=== PATIENT | female | born 1975 | race Two or more races ===

== ENCOUNTER 2020-06-29 17:00 | Inpatient (IN) | payer MEDICAID ==
[~2020-06-29] VITALS: Ht 175.3 cm; Wt 146.0 kg
[2020-06-29] MEDS ORDERED: PANTOPRAZOLE 40 MG/10 ML VIAL INJ IV STA (17:03)
[2020-06-29] MEDS ORDERED: ONDANSETRON HCL 4 MG/2 ML VIAL IV ONE (17:15)
[2020-06-29] MEDS ORDERED: SODIUM CHLORIDE 0.9% 500 ML IVB ONE (17:15)
[2020-06-29] MEDS ORDERED: MORPHINE SULFATE 4 MG/ML SYR/VIAL IV ONE (17:15)
[2020-06-29 18:31] LABS: Basophils # (auto) 0 10 ^3/uL (0-0.2); Basophils % (auto) 0.3 % (0.0-2.0); Eosinophils # (auto) 0.1 10 ^3/uL (0-0.8); Eosinophils % (auto) 0.4 % (0.0-7.0); Hematocrit 42.1 % (36.0-46.0); Hemoglobin 13.8 g/dL (12.2-16.2); Lymphocytes # (auto) 1.7 10 ^3/uL (0.4-5.4); Lymphocytes % (auto) 12.9 % (10.0-50.0); Mean Corpuscular Hemoglobin 29.4 pg (28.0-32.0); Mean Corpuscular Hgb Conc. 32.7 g/dL (32.0-36.0); Mean Corpuscular Volume 89.9 fL (80.0-100.0); Monocytes # (auto) 0.8 10 ^3/uL (0-1.3); Monocytes % (auto) 6.6 % (0.0-12.0); Neutrophils # (auto) 10.3 10 ^3/uL (1.6-8.6); Neutrophils % (auto) 79.8 % (37.0-80.0); Nucleated Red Blood Cells % 0.1 %; Platelet Count (auto) 280 10^3/uL (140-450); Red Blood Cells 4.68 10^6/uL (4.0-5.20); Red Cell Distribution Width 14.4 % (11.8-14.3); White Blood Cell 12.9 10^3/uL (4.4-10.8)
[2020-06-29 18:43] LABS: Albumin 3.5 g/dL (3.4-5.0); Calcium 9.3 mg/dL (8.5-10.1); Potassium 3.6 mmol/L (3.5-5.1)
[2020-06-29 18:46] LABS: BUN/Creatinine Ratio 12.2; Bilirubin, Total 0.6 mg/dL (0.2-1.0); Total Protein 8.4 g/dL (6.4-8.2)
[2020-06-29] MEDS ORDERED: SODIUM CHLORIDE 0.9% 1,000 ML IV ONE (20:15)
[2020-06-29] MEDS ORDERED: ONDANSETRON HCL 4 MG/2 ML VIAL IV PRN (21:45)
[2020-06-29] MEDS ORDERED: NITROGLYCERIN 0.4 MG SL TAB SL PRN (21:45)
[2020-06-29] MEDS ORDERED: MORPHINE SULF INJ 2 MG/ML SYRINGE 1ML IV PRN (21:45)
[2020-06-29] MEDS: HEPARIN SODIUM (PORCINE) 5000 UNITS/ML 1ML VIAL SC SCH (22:00)
[2020-06-30] MEDS: ACETAMINOPHEN 325 MG TAB PO PRN ×2 (00:32→01:55)
[2020-06-30] MEDS: PIPERACILLIN-TAZOB 3.375GM 100 ML IV SCH ×4 (00:33→21:48)
[2020-06-30] MEDS: SODIUM CHLORIDE 0.9% 1,000 ML IV SCH ×4 (01:55→21:48)
[2020-06-30 03:34] LABS: Urine Amorphous Crystal FEW /hpf (None Seen); Urine Bacteria MOD /hpf (None Seen); Urine Blood 3+ /uL (Negative); Urine Hyaline Cast MANY /lpf (0 - 2); Urine Mucus FEW (None Seen); Urine Specific Gravity 1.019 (1.001-1.035); Urine WBC 39 /hpf (0 - 5)
[2020-06-30] MEDS: MORPHINE SULF INJ 2 MG/ML SYRINGE 1ML IV PRN ×3 (05:11→21:00)
[2020-06-30 05:22] LABS: Calcium 8.6 mg/dL (8.5-10.1); Magnesium 2.5 mg/dL (1.6-2.6); Potassium 4.4 mmol/L (3.5-5.1)
[2020-06-30 05:24] LABS: Basophils # (auto) 0.1 10 ^3/uL (0-0.2); Basophils % (auto) 0.5 % (0.0-2.0); Eosinophils # (auto) 0.2 10 ^3/uL (0-0.8); Eosinophils % (auto) 1.9 % (0.0-7.0); Hematocrit 40.1 % (36.0-46.0); Lymphocytes # (auto) 3.1 10 ^3/uL (0.4-5.4); Lymphocytes % (auto) 33.3 % (10.0-50.0); Mean Corpuscular Hemoglobin 29.5 pg (28.0-32.0); Mean Corpuscular Hgb Conc. 32.5 g/dL (32.0-36.0); Mean Corpuscular Volume 90.6 fL (80.0-100.0); Monocytes # (auto) 0.7 10 ^3/uL (0-1.3); Neutrophils # (auto) 5.2 10 ^3/uL (1.6-8.6); Neutrophils % (auto) 56.3 % (37.0-80.0); Nucleated Red Blood Cells % 0.1 %; Platelet Count (auto) 232 10^3/uL (140-450); Red Blood Cells 4.42 10^6/uL (4.0-5.20); Red Cell Distribution Width 14.9 % (11.8-14.3); White Blood Cell 9.3 10^3/uL (4.4-10.8)
[2020-06-30 05:25] LABS: BUN/Creatinine Ratio 18.3; Bilirubin, Total 0.7 mg/dL (0.2-1.0); Phosphorus 3.9 mg/dL (2.5-4.90); Total Protein 7.2 g/dL (6.4-8.2)
[2020-06-30] MEDS ORDERED: SODIUM CHLORIDE 0.9% 2,000 ML IV ONE (09:00)
[2020-06-30] MEDS: HEPARIN SODIUM (PORCINE) 5000 UNITS/ML 1ML VIAL SC SCH ×2 (11:46→21:49)
[2020-06-30] MEDS: PANTOPRAZOLE 40 MG TAB PO SCH ×2 (12:58→21:48)
[2020-06-30 17:00] VITALS: BP 138/80
[2020-06-30] MEDS ORDERED: LISI-706 PO (17:08)
[2020-06-30] MEDS ORDERED: METF-370 PO (17:08)
[2020-06-30] MEDS ORDERED: ERGO1CAP12 PO (17:08)
[2020-06-30] MEDS ORDERED: ATOR10TA52 PO (17:08)
[2020-06-30] MEDS ORDERED: GABA100C9 PO (17:08)
[2020-06-30 22:50] VITALS: BP 119/63
[2020-07-01] MEDS: MORPHINE SULF INJ 2 MG/ML SYRINGE 1ML IV PRN (03:10)
[2020-07-01 05:12] VITALS: BP 135/58
[2020-07-01] MEDS: PIPERACILLIN-TAZOB 3.375GM 100 ML IV SCH ×2 (05:37→14:00)
[2020-07-01] MEDS: SODIUM CHLORIDE 0.9% 1,000 ML IV SCH ×2 (05:37→13:45)
[2020-07-01 08:00] VITALS: BP 143/80
[2020-07-01] MEDS: HEPARIN SODIUM (PORCINE) 5000 UNITS/ML 1ML VIAL SC SCH (10:00)
[2020-07-01] MEDS: PANTOPRAZOLE 40 MG TAB PO SCH (10:05)
[2020-07-01] MEDS ORDERED: LEVO500T21 PO (12:35)
[2020-07-01] MEDS ORDERED: PANT40T PO (12:35)
[2020-07-01 12:59] VITALS: BP 158/84
[2020-07-01 13:26] VITALS: BP 131/73
== END 2020-07-01 18:11 | disposition home or self-care (01) | DRG 720 ==
LOC: EDBD 17:00 → ER 17:00 → OVERFLOW 17:01 → TELE-WESTW 06-30 15:05
PROVIDERS: ADMIT Internal Medicine; ATTEND Internal Medicine
DX: A41.9 Sepsis, unspecified organism (principal); R65.21 Severe sepsis with septic shock; N17.9 Acute kidney failure, unspecified; N39.0 Urinary tract infection, site not specified; I10 Essential (primary) hypertension; Z90.49 Acquired absence of other specified parts of digestive tract; Z88.5 Allergy status to narcotic agent; Z88.6 Allergy status to analgesic agent; Z79.899 Other long term (current) drug therapy
CPT/HCPCS: 36415; 74176; 80053; 81001; 83690; 83735; 84100; 84702; 85025; 87040; 87086; 96361; 96374; 96375; C9113; G0378; J2405; J2543

== ENCOUNTER 2025-03-15 19:39 | Inpatient (IN) | payer MEDICAID, SELFPAY ==
[~2025-03-15] VITALS: Ht 175.5 cm; Wt 152.7 kg
[~2025-03-15 19:39] MED LIST: ERGO1CAP12 PO; LEVO500T31 PO; LISI-706 PO; PANT40T PO
--- NOTE | 2025-03-15 19:58 | ECG ---
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
--- NOTE | 2025-03-15 20:00 | ED.PDOC ---
HPI (NEURO) HPI Comments 49-year-old female who comes in with chief complaint of dizziness as well as nausea and back pain. The patient states that the symptoms started approximately 1 hour ago. She was at work today and states that she felt fine. Upon arrival, the patient states that she was at home and then 1 hour prior to arrival as when the symptoms began. The patient also had some palpitations. She does have a history of anxiety but states that the pain and the symptoms were somewhat different. The patient is having some epigastric pain as well as headache. The patient was tachycardic upon arrival and initially she was hypertensive but upon arrival, the patient is now normotensive. Chief Complaint: General Weakness Time Seen by MD: 19:41 Primary Care Provider: JELLY Reviewed Notes: Nurses Notes, Computer Assembler Notes, Medications, Allergies (Allergies listed above) Information Source: Patient, Emergency Med Personnel Mode of Arrival: EMS Severity: Moderate Dizziness/Weakness Severity: Does not affect activitie Headache Severity: Mild Timing: Hours Duration: Since onset Prehospital treatment: 12 Lead EKG, Accucheck, Rehabilitation Aide, IVF Headache Location: Generalized Weakness Location: Generalized Onset: At rest, Other (Sudden onset) Circumstances: Spontaneous Symptoms: Near syncope, Other (Palpitations, epigastric pain and headache) Before: Normal Associated Signs and Symptoms: Headache, Nausea, Palpitations, Weakness, Other (Dizziness and back pain) Past Medical History PAST MEDICAL HISTORY: Anxiety, Cancer (Uterine cancer stage II), HTN Surgical History: Cholecystectomy PROPERTY WORKER History: No Pertinent PROPERTY WORKER History Family History Family History: Family hx of DM, Family hx of Cancer, Family hx of heart dago Social History Smoker: Non-Smoker Alcohol: Rarely Drugs: Denies Drug Use Lives In: Home Constitutional: denies: chills, diaphoresis, fatigue, fever, malaise, sweats, weakness, others EENTM: denies: blurred vision, double vision, ear bleeding, ear discharge, ear drainage, ear pain, ear ringing, eye pain, eye redness, hearing loss, mouth pain, mouth swelling, nasal discharge, nose bleeding, nose congestion, nose pain, photophobia, tearing, throat pain, throat swelling, voice changes, others Respiratory: denies: cough, hemoptysis, orthopnea, SOB at rest, shortness of breath, SOB with excertion, stridor, wheezing, others Cardiovascular: reports: palpitations; denies: chest pain, dizzy spells, diaphoresis, Dyspnea on exertion, edema, irregular heart beat, left arm pain, lightheadedness, PND, syncope, others Gastrointestinal: reports: abdominal pain, nausea; denies: abdomen distended, blood streaked bowels, constipated, diarrhea, dysphagia, difficulty swallowing, hematemesis, melena, poor appetite, poor fluid intake, rectal bleeding, rectal pain, vomiting, others Genitourinary: denies: abnormal vagina bleeding, burning, dyspareunia, dysuria, flank pain, frequency, hematuria, incontinence, pain, , vagina discharge, urgency, others Neurological: reports: dizziness, headache; denies: fainting, left sided numbness, left sided weakness, numbness, paresthesia, pre-existing deficit, right sided numbness, right sided weakness, seizure, speech problems, tingling, tremors, weakness, others Musculoskeletal: denies: back pain, gout, joint pain, joint swelling, muscle pain, muscle stiffness, neck pain, others Integumetry: denies: bruises, change in color, change in hair/nails, dryness, laceration, lesions, lumps, rash, wounds, others Allergic/Immunocompromised: denies: Difficulty Healing, Frequent Infections, Hives, Itching, others Hematologic/Lymphatic: denies: anemia, blood clots, easy bleeding, easy bruising, swollen glands, others Endocrine: denies: excessive hunger, excessive sweating, excessive thirst, excessive urination, flushing, intolerance to cold, intolerance to heat, unexplained weight gain, unexplained weight loss, others Psychiatric: denies: anxiety, bipolar disorder, depression, hopeless, panic disorder, schizophrenia, sleepless, suicidal, others Physical Exam General Appearance: Moderate Distress, Obese HEENT: Normal ENT Inspection, Pharynx Normal, TMs Normal Neck: Full Range of Motion, Non-Tender, Normal, Normal Inspection Respiratory: Chest Non-Tender, Lungs Clear, No Accessory Muscle Use, No Respiratory Distress, Normal Breath Sounds Cardiovascular: No Edema, No JVD, No Murmur, No Gallop, Normal Peripheral Pulses, Regular Rate/Rhythm Breast Exam: Deferred Gastrointestinal: Epigastric, No Organomegaly, No Pulsatile Mass, Normal Bowel Sounds, Soft, Tenderness Genitalia: Deferred Pelvic: Deferred Rectal: Deferred Extremities: No calf tenderness, Normal capillary refill, Normal inspection, Normal range of motion, Non-tender, No pedal edema Musculoskeletal : Apperance: Normal Neurologic: 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 Was a procedure done?: No Differential Diagnosis (SZ) Seizure: CVA/TIA, Syncope CVA: CVA, TIA X-Ray, Labs, Meds, VS Vital Signs Date Time Temp Pulse Resp B/P (MAP) Pulse Ox O2 Delivery O2 Flow Rate FiO2 03/15/25 20:00 55 03/15/25 19:52 55 03/15/25 19:52 98.0 57 16 137/77 (97) 98 98.0 Lab Test 03/15/25 20:52 03/15/25 20:00 03/15/25 19:56 Range/Units Troponin I High Sensitivity Pending < 3 L </=34 ng/L Urine Color Light-yellow Yellow Urine Clarity Turbid H Clear Urine pH 6.0 5.0-9.0 Urine Specific [place] 1.015 1.001-1.035 Urine Protein Negative Negative Urine Ketones Trace Negative Urine Blood 3+ H Negative /uL Urine Nitrite Negative Negative Urine Bilirubin Negative Negative Urine Urobilinogen Normal Negative mg/dL Urine Leukocyte Esterase 3+ Negative /uL Urine RBC 5 0 - 4 /hpf Urine Microscopic WBC 136 H 0-5 /HPF Urine Squamous Epithelial Cells Few <5 /hpf Urine Bacteria Few H None Seen /hpf Urine Mucus Few None Seen Urine Glucose Normal Normal mg/dL White Blood Count 8.9 4.4-10.8 10^3/uL Red Blood Count 4.67 4.0-5.20 10^6/uL Hemoglobin 14.0 12.2-16.2 g/dL Hematocrit 41.1 36.0-46.0 % Mean Corpuscular Volume 87.9 80.0-100.0 fL Mean Corpuscular Hemoglobin 29.9 28.0-32.0 pg Mean Corpuscular Hemoglobin Concent 34.0 32.0-36.0 g/dL Red Cell Distribution Width 14.3 11.8-14.3 % Platelet Count 245 140-450 10^3/uL Mean Platelet Volume 7.2 6.9-10.8 fL Neutrophils (%) (Auto) 50.1 37.0-80.0 % Lymphocytes (%) (Auto) 38.8 10.0-50.0 % Monocytes (%) (Auto) 7.4 0.0-12.0 % Eosinophils (%) (Auto) 2.7 0.0-7.0 % Basophils (%) (Auto) 1.0 0.0-2.0 % Neutrophils # (Auto) 4.5 1.6-8.6 10 ^3/uL Lymphocytes # (Auto) 3.4 0.4-5.4 10 ^3/uL Monocytes # (Auto) 0.7 0-1.3 10 ^3/uL Eosinophils # (Auto) 0.2 0-0.8 10 ^3/uL Basophils # (Auto) 0.1 0-0.2 10 ^3/uL Nucleated Red Blood Cells 0.2 % Sodium Level 141 136-145 mmol/L Potassium Level 3.6 3.5-5.1 mmol/L Chloride Level 107 98-107 mmol/L Carbon Dioxide Level 26 20-31 mmol/L Anion Gap 8 5-15 Blood Urea Nitrogen 12 9-23 mg/dL Creatinine 0.85 0.550-1.02 mg/dL Glomerular Filtration Rate Calc 84 >90 mL/min BUN/Creatinine Ratio 14.1 10.0-20.0 Serum Glucose 94 74-106 mg/dL Calcium Level 10.0 8.7-10.4 mg/dL IV Hep-Lock was established The CBC is within normal limits The chemistry panel is within normal limits The urine test is positive for UTI The patient is still having epigastric type pain The patient is being started on Rocephin 1 g IV piggyback The patient is being admitted at this time Images Reviewed?: Images reviewed and evaluated by me Time of 1ST Reevaluation: 19:59 Reevaluation 1ST: Unchanged Patient Education/Counseling: Diagnosis, Treatment, Prognosis Family Education/Counseling: No Family Present Departure 1 Departure Time of Disposition: 21:09 Impression: Primary Impression: Intractable abdominal pain Additional Impressions: UTI (lower urinary tract infection) Generalized weakness Disposition: 09 ADMITTED INPATIENT Admit to: Med Surg Condition: Fair Critical Care Note Critical Care Time?: Yes (45 min-critical care time only) Stability Stability form required: Yes Unstable for transfer: Telemetry monitoring (Telemetry monitoring required), ED Physician Assesment (Clinical assesment) Heart Score Heart Score: Heart Score Response (Comments) Value History Moderate Suspicious 1 EKG Repolarization Disturb 1 Age 45-64 1 Risk Factors 1 or 2 risk factors 1 Troponin Normal limit 0 Total 4 DAISY PROCTOR MD Mar 15, 2025 20:00
[2025-03-15 20:07] LABS: Basophils # (auto) 0.1 10 ^3/uL (0-0.2); Eosinophils # (auto) 0.2 10 ^3/uL (0-0.8); Eosinophils % (auto) 2.7 % (0.0-7.0); Hematocrit 41.1 % (36.0-46.0); Lymphocytes # (auto) 3.4 10 ^3/uL (0.4-5.4); Lymphocytes % (auto) 38.8 % (10.0-50.0); Mean Corpuscular Hemoglobin 29.9 pg (28.0-32.0); Mean Corpuscular Volume 87.9 fL (80.0-100.0); Monocytes # (auto) 0.7 10 ^3/uL (0-1.3); Monocytes % (auto) 7.4 % (0.0-12.0); Neutrophils # (auto) 4.5 10 ^3/uL (1.6-8.6); Neutrophils % (auto) 50.1 % (37.0-80.0); Nucleated Red Blood Cells % 0.2 %; Platelet Count (auto) 245 10^3/uL (140-450); Red Blood Cells 4.67 10^6/uL (4.0-5.20); Red Cell Distribution Width 14.3 % (11.8-14.3); White Blood Cell 8.9 10^3/uL (4.4-10.8)
[2025-03-15 20:16] LABS: Urine Bacteria FEW /hpf (None Seen); Urine Blood 3+ /uL (Negative); Urine Clarity Turbid (Clear); Urine Color Light-Yellow (Yellow); Urine Mucus FEW (None Seen); Urine Protein, UAD Negative (Negative); Urine Specific Gravity 1.015 (1.001-1.035); Urine Squamous Epithelial Cell FEW /hpf (<5); Urine Urobilinogen Normal (Negative); Urine WBC 136 /HPF (0-5)
[2025-03-15 20:19] LABS: Chloride 107 mmol/L (98-107); Potassium 3.6 mmol/L (3.5-5.1); Sodium 141 mmol/L (136-145)
[2025-03-15 20:20] LABS: Anion Gap 8 (5-15); Carbon Dioxide 26 mmol/L (20-31)
[2025-03-15 20:25] LABS: BUN/Creatinine Ratio 14.1 (10.0-20.0); Blood Urea Nitrogen 12 mg/dL (9-23); Glucose 94 mg/dL (74-106)
--- NOTE | 2025-03-15 21:02 | ECG ---
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
--- NOTE | 2025-03-15 22:31 | DVH ---
EXAM: XY CHEST PORTABLE CLINICAL HISTORY: weakness TECHNIQUE: Single frontal view of the chest WID: COMPARISON: None FINDINGS: Lines and tubes: NONE Chest: The heart size and pulmonary vasculature is within normal limits. No pleural effusion, pneumothorax, or consolidation. The osseous structures are grossly intact. Multilevel thoracic spondylosis. IMPRESSION: No acute cardiopulmonary abnormality.
[2025-03-16] VITALS (7 sets, daily range): BP systolic 105–127; BP diastolic 41–61; PULSE 51–60; RESP 14–18; TEMP 97.6–98.6; O2SAT 96–98
[2025-03-16] MEDS ORDERED: ONDANSETRON HCL 4 MG/2 ML VIAL IV PRN (01:15)
[2025-03-16] MEDS ORDERED: NITROGLYCERIN 0.4 MG SL TAB SL PRN (01:15)
[2025-03-16] MEDS ORDERED: MORPHINE SULFATE INJ 2 MG/ml SYRG IV PRN (01:15)
[2025-03-16] MEDS ORDERED: HYDROcodone-ACET 5/325MG TAB PO PRN (01:15)
[2025-03-16] MEDS: ONDANSETRON HCL 4 MG/2 ML VIAL IV ONE (03:22)
[2025-03-16] MEDS: PANTOPRAZOLE 40 MG/10 ML VIAL INJ IV ONE (03:22)
[2025-03-16] MEDS: SODIUM CHLORIDE 0.9% 500 ML IV ONE (04:01)
--- NOTE | 2025-03-16 04:08 | DVHHP2 ---
History of Present Illness Reason for Visit: Generalized weakness History of Present Illness 49-year-old female presents for evaluation of generalized weakness. Patient reports developing generalized weakness with associated dizziness yesterday. Patient also reports having back pain. Patient reports recently being diagnosed with uterine cancer and is currently undergoing workup for treatment. Denies chest pain. No shortness a breath. No other acute complaints. Past Medical History Uterine cancer, hypertension, anxiety Past Surgical History Cholecystectomy Family History Cancer and heart disease Smoke: No ALCOHOL: occassional Drugs: None Lives: with Family Review of Systems Review of Systems Review of systems are currently negative otherwise addressed in HPI. Allergies: Coded Allergies: Codeine (Verified Allergy, Unknown, 02/01/15) Ibuprofen (Verified Allergy, Unknown, 02/01/15) Medications Current Medications Medications Dose Ordered Sig/Malik Route Start Time Stop Time Status Last Admin Dose Admin Lisinopril 10 mg DAILY PO 03/16/25 10:00 Levothyroxine Sodium 25 mcg QAM@0600 PO 03/16/25 06:00 Atorvastatin Calcium 20 mg HS PO 03/16/25 22:00 Acetaminophen/ Hydrocodone Bitart 1 tab Q4HP PRN PO 03/16/25 01:15 Ondansetron HCl 4 mg Q4HP PRN IV 03/16/25 01:15 Acetaminophen 650 mg Q6HP PRN PO 03/16/25 01:15 Nitroglycerin 0.4 mg Q5MINP PRN SL 03/16/25 01:15 Morphine Sulfate 2 mg Q30M PRN IV 03/16/25 01:15 Ceftriaxone Sodium 50 ml @ 100 mls/hr DAILY@09 IV 03/17/25 09:00 Exam Vital Signs Vital Signs Date Time Temp Pulse Resp B/P (MAP) Pulse Ox O2 Delivery O2 Flow Rate FiO2 03/16/25 03:26 16 Room Air* 0 21 21 03/16/25 02:42 99.1 54 145/45 (78) 96 99.1 Exam Gen: 49-year-old female in mild distress, morbidly obese Skin: Warm, dry, normal color and texture, no rash. HEENT: Normocephalic atraumatic, mucous membranes moist and pink. Neck: Cervical and supraclavicular nodes normal without enlargement, trachea is midline, thyroid gland is normal without masses. Pulmonary: Clear to auscultation and percussion bilaterally. Cardiac: Sinus bradycardia Abdomen: Soft, nontender, nondistended, bowel sounds present all 4 quadrants, no guarding, no rigidity, no organomegaly. Extremities: No cyanosis, clubbing, no edema Neuro: Cranial nerves II through XII grossly intact, normal affect and speech, no focal motor deficits. Labs/Xrays ORDERING PHYSICIAN: DAISY PROCTOR MD PROCEDURE(s): CXRP - CHEST PORTABLE REASON: weakness ORDER NUMBER(s): [id number], ACCESSION NUMBER(s): [id number] EXAM: XY CHEST PORTABLE CLINICAL HISTORY: weakness TECHNIQUE: Single frontal view of the chest WID: COMPARISON: None FINDINGS: Lines and tubes: NONE Chest: The heart size and pulmonary vasculature is within normal limits. No pleural effusion, pneumothorax, or consolidation. The osseous structures are grossly intact. Multilevel thoracic spondylosis. IMPRESSION: No acute cardiopulmonary abnormality. Labs Test 03/15/25 20:52 03/15/25 20:00 03/15/25 19:56 Range/Units Troponin I High Sensitivity < 3 L </=34 ng/L Urine Color Light-yellow Yellow Urine Clarity Turbid H Clear Urine pH 6.0 5.0-9.0 Urine Specific [place] 1.015 1.001-1.035 Urine Protein Negative Negative Urine Ketones Trace Negative Urine Blood 3+ H Negative /uL Urine Nitrite Negative Negative Urine Bilirubin Negative Negative Urine Urobilinogen Normal Negative mg/dL Urine Leukocyte Esterase 3+ Negative /uL Urine RBC 5 0 - 4 /hpf Urine Microscopic WBC 136 H 0-5 /HPF Urine Squamous Epithelial Cells Few <5 /hpf Urine Bacteria Few H None Seen /hpf Urine Mucus Few None Seen Urine Glucose Normal Normal mg/dL White Blood Count 8.9 4.4-10.8 10^3/uL Red Blood Count 4.67 4.0-5.20 10^6/uL Hemoglobin 14.0 12.2-16.2 g/dL Hematocrit 41.1 36.0-46.0 % Mean Corpuscular Volume 87.9 80.0-100.0 fL Mean Corpuscular Hemoglobin 29.9 28.0-32.0 pg Mean Corpuscular Hemoglobin Concent 34.0 32.0-36.0 g/dL Red Cell Distribution Width 14.3 11.8-14.3 % Platelet Count 245 140-450 10^3/uL Mean Platelet Volume 7.2 6.9-10.8 fL Neutrophils (%) (Auto) 50.1 37.0-80.0 % Lymphocytes (%) (Auto) 38.8 10.0-50.0 % Monocytes (%) (Auto) 7.4 0.0-12.0 % Eosinophils (%) (Auto) 2.7 0.0-7.0 % Basophils (%) (Auto) 1.0 0.0-2.0 % Neutrophils # (Auto) 4.5 1.6-8.6 10 ^3/uL Lymphocytes # (Auto) 3.4 0.4-5.4 10 ^3/uL Monocytes # (Auto) 0.7 0-1.3 10 ^3/uL Eosinophils # (Auto) 0.2 0-0.8 10 ^3/uL Basophils # (Auto) 0.1 0-0.2 10 ^3/uL Nucleated Red Blood Cells 0.2 % Sodium Level 141 136-145 mmol/L Potassium Level 3.6 3.5-5.1 mmol/L Chloride Level 107 98-107 mmol/L Carbon Dioxide Level 26 20-31 mmol/L Anion Gap 8 5-15 Blood Urea Nitrogen 12 9-23 mg/dL Creatinine 0.85 0.550-1.02 mg/dL Glomerular Filtration Rate Calc 84 >90 mL/min BUN/Creatinine Ratio 14.1 10.0-20.0 Serum Glucose 94 74-106 mg/dL Calcium Level 10.0 8.7-10.4 mg/dL Assessment/Plan Assessment/Plan Assessment Symptomatic bradycardia Generalized weakness Urinary tract infection Uterine cancer Morbid obesity Plan Admit the patient to telemetry to the hospitalist Cardiology consultation Echocardiogram pending Resume home medications Continue treatment per orders. Plan discussed with: Patient My Orders Orders - EMILY KING Procedure Category Date Status Time Lisinopril Tablet PHA 03/16/25 In Process (Zestril Tablet) 10:00 Levothyroxine Tablet PHA 03/16/25 In Process (Synthroid Tablet) 06:00 Atorvastatin (Lipitor) PHA 03/16/25 In Process 22:00 * Cardiology Consult CONS 03/16/25 Transmitted 01:06 Admit ADMIT 03/16/25 Transmitted 01:06 Hydrocodone-Acet PHA 03/16/25 In Process 5/325mg Tab (Portal 01:15 Ondansetron Hcl PHA 03/16/25 In Process (Zofran) 01:15 Cardiac DIET 03/16/25 Transmitted Diet-2gna,Lofat,Lochol Breakfast Echo 2d Mode Cardiac US 03/16/25 Logged DOP 01:06 Condition: Fair ELIZABETH 03/16/25 In Process 01:06 Acetaminophen Tablet PHA 03/16/25 In Process (Tylenol Tablet) 01:15 Bedrest With Bathroom [facility] 03/16/25 In Process Privileg 01:06 Nitroglycerin PHA 03/16/25 In Process Sublingual (Ntrostat 01:15 Morphine Sulfate PHA 03/16/25 In Process Injection 01:15 Stat Ekg For Chest [facility] 03/16/25 In Process Pain 01:06 Notify Md Of Changes [facility] 03/16/25 In Process From Base 01:06 Bilingual Recruiter For [facility] 03/16/25 In Process 24 Hours 01:06 Emergency Dysrhythmia [facility] 03/16/25 In Process Protocol 01:06 Rhythm Strips Once [facility] 03/16/25 In Process Every Shift 01:06 Oxygen By Nasal RT 03/16/25 Transmitted Cannula 01:06 Basic Metabolic Panel LAB 03/16/25 Logged 04:00 Ceftriaxone 1gm/50ml PHA 03/17/25 In Process D5w (Rocephin) 09:00 Date of Service: Mar 15, 2025 Billing Provider: EMILY KING Common Visit Codes: [id number] INP/OBS CARE (HIGH) EMILY KING Mar 16, 2025 04:07
[2025-03-16] MEDS: cefTRIAXone 1GM/50ML D5W 50 ML IV ONE (04:11)
[2025-03-16] MEDS ORDERED: CETI-120 PO (04:37)
[2025-03-16] MEDS ORDERED: LEVO25TA6 PO (04:37)
[2025-03-16] MEDS: LEVOTHYROXINE SODIUM 25 MCG TAB PO SCH (04:58)
--- NOTE | 2025-03-16 06:56 | ECG ---
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
[2025-03-16 08:13] LABS: Chloride 107 mmol/L (98-107)
[2025-03-16 08:15] LABS: Calcium 9.7 mg/dL (8.7-10.4)
[2025-03-16 08:19] LABS: BUN/Creatinine Ratio 12.2 (10.0-20.0); Blood Urea Nitrogen 11 mg/dL (9-23); Glucose 100 mg/dL (74-106)
[2025-03-16 08:21] LABS: Cholesterol 168 mg/dL (< 200); LDL Cholesterol 112 mg/dL (< 100); Triglycerides 240 mg/dL (< 150)
[2025-03-16 08:23] LABS: HDL Cholesterol 29 mg/dL (40-59)
[2025-03-16 08:40] LABS: Potassium 3.9 mmol/L (3.5-5.1); Sodium 140 mmol/L (136-145)
[2025-03-16 08:41] LABS: Anion Gap 10 (5-15); Carbon Dioxide 23 mmol/L (20-31)
[2025-03-16] MEDS: LISINOPRIL 5 MG TAB PO SCH (08:50)
--- NOTE | 2025-03-16 09:27 | DVHCONRES ---
Date Seen: Mar 16, 2025 Resident Creating Document: JOSE FRANCISCO COKER RESIDENT Reason for Consultation Bradycardia History of Present Illness Patient is a 49-year-old female with past medical history of hypothyroidism, recently diagnosed uterine cancer currently not on treatment, dyslipidemia, who comes in due to weakness and dizziness. According to the patient, yesterday on 03/15/2025 all of a sudden she started feeling faint, fatigued and weak along with a heavy sensation in her chest, patient notes she tried breathing treatments which slightly improved her symptoms, however, what caused her to vomit which is what prompted her to call the ambulance and come to the hospital. Patient notes she had similar symptoms a few months ago and usually experiences such symptoms during times of extreme stress, however this time symptoms were more persistent and progressive. On review of systems patient is complaining of fatigue, chills, palpitations and vomiting. Serial troponins were <3, <3. EKG showed sinus bradycardia without any pauses or blocks along with a bifascicular block. Past Medical History hypothyroidism, recently diagnosed uterine cancer currently not on treatment, dyslipidemia Past Surgical History Cholecystectomy, right arm surgery Family History: Diabetes mellitus G8 FATHER FH: cancer G8 MOTHER FH: heart disease G8 MOTHER Social History Smoking: Denies Alcohol: Currently denies, history of heavy use in her 30s Drugs: Denies Allergies: Coded Allergies: Codeine (Verified Allergy, Unknown, 02/01/15) Ibuprofen (Verified Allergy, Unknown, 02/01/15) Milk (Cow) (Verified Allergy, Unknown, 03/17/25) Per pt Home Meds Active Scripts Ciprofloxacin Hcl (Cipro) 500 Mg Tab, 500 MG PO BID for 5 Days, #10 TAB Prov:JOSE GUIDRY RESIDENT 03/17/25 Levothyroxine Sodium (Levothyroxine Sodium) 50 Mcg Tab, 50 MCG PO DAILY for 30 Days, #30 TAB 2 Refills Prov:JOSE GUIDRY RESIDENT 03/17/25 Meclizine Hcl (Meclizine Hcl) 25 Mg Tab, 25 MG PO Q8HR PRN for 10 Days, #30 TAB Prov:JOSE GUIDRY RESIDENT 03/17/25 Levofloxacin (Levaquin) 500 Mg Tab, 500 MG PO DAILY, #12 TAB Prov:RYLEE RAMIREZ MD 07/01/20 Pantoprazole Sodium Sesquihydr (Pantoprazole Sodium) 40 Mg Tab, 40 MG PO DAILY, #30 TAB Prov:RYLEE RAMIREZ MD 07/01/20 Reported Medications Cetirizine HCl (Cetirizine Hydrochloride) 10 Mg Tab, 1 TAB PO DAILY 03/16/25 Levothyroxine Sodium (Levothyroxine Sodium) 25 Mcg Tab, PO 03/16/25 Ergocalciferol (Vitamin D) 50,000 Unit Cap, 41573 UNIT PO, CAP 06/30/20 Lisinopril & Hydrochlorothiazi (Zestoretic 20-12.5 mg) 1 Tab Tab, 1 TAB PO DAILY, TAB 06/30/20 Current Medications Current Medications Medications (Trade) Dose Ordered Sig/Malik Route PRN Reason Start Time Stop Time Status Last Admin Lisinopril (Zestril Tablet) 10 mg DAILY PO 03/16/25 10:00 03/16/25 08:50 Levothyroxine Sodium (Synthroid Tablet) 25 mcg QAM@0600 PO 03/16/25 06:00 03/16/25 04:58 Atorvastatin Calcium (Lipitor) 20 mg HS PO 03/16/25 22:00 Acetaminophen/ Hydrocodone Bitart ([place] 5/325MG Tab) 1 tab Q4HP PRN PO MODERATE PAIN (4-6 PAIN SCALE) 03/16/25 01:15 Ondansetron HCl (Zofran) 4 mg Q4HP PRN IV NAUSEA / VOMITING 03/16/25 01:15 Acetaminophen (Tylenol Tablet) 650 mg Q6HP PRN PO PAIN SCALE 1-3 OR TEMP>100.4 03/16/25 01:15 Nitroglycerin (Ntrostat Sublingual) 0.4 mg Q5MINP PRN SL FOR CHEST PAIN 03/16/25 01:15 Morphine Sulfate 2 mg Q30M PRN IV FOR CHEST PAIN 03/16/25 01:15 Ceftriaxone Sodium 50 ml @ 100 mls/hr DAILY@09 IV 03/17/25 09:00 Review of Systems Patient seen and examined at bedside. Patient is alert and oriented to time, place person and responding to all questions. General: Fatigue, chills Eyes: No Pain, No Vision change, No Conjunctivae inflammation, No Eyelid inflammation, No Other, No Redness ENT: No Ear pain, No Ear discharge, No Nose pain, No Nose discharge, No Nose congestion, No Mouth pain, No Mouth swelling, No Throat pain, No Throat swelling, No Other Cardiovascular: No Chest Pain, Palpitations, No Orthopnea, No Paroxysmal No Dyspnea, No Edema, No Lt Headedness, No Other Respiratory: No Cough, No Dry, No Shortness of breath, No SOB with exertion, No Wheezing, No Hemoptysis, No Pleuritic Pain, No Sputum, No Other Gastrointestinal: No Nausea, Vomiting, No Abdominal Pain, No Diarrhea, No Co nstipation, No Melena, No Hematochezia, No Other Genitourinary: No Dysuria, No Frequency, No Incontinence, No Hematuria, No Ret ention, No Other Musculoskeletal: No other, No neck pain, No shoulder pain, No arm pain, No back pain, No hand pain, No leg pain, No foot pain Skin: No Rash, No Lesions, No Jaundice, No Bruising, No Other Vital Signs Vital Signs Date Time Temp Pulse Resp B/P (MAP) Pulse Ox O2 Delivery O2 Flow Rate FiO2 03/16/25 08:50 119/59 03/16/25 07:57 98.2 55 18 98 98.2 03/16/25 04:19 Room Air* 0 21 Physical Exam General Appearance: Cooperative. Well developed. Well nourished. NAD, dry mucous membrane Head Exam: Normal inspection Neck Exam: Normal inspection. Non-tender. Normal alignment Pulmonary/Respiratory: Chest non-tender. Clear bilateral breath sounds, no crackles, no wheezing. Cardiovascular/Chest: Regular rhythm, bradycardia. No murmurs. No JVD. Peripheral Pulses: 2+ Radial (R). 2+ Radial (L). 2+ Pedal (R). 2+ Pedal (L) Abdominal Exam: Normal bowel sounds. Soft. normal abdomen, no visible veins, Nontender. No hepatospenomegaly. No masses Lower extremities: Trace lower extremity edema Neuro/Mental Status: A&O x4. Coherent. Thoughts/Psych: Normal thought pattern. Appropriate mood and affect. Good judgement and insight Skin Exam: Normal inspection. Normal color. Warm. Dry Labs/Diagnostic Data Labs Test 03/16/25 07:07 03/15/25 20:52 03/15/25 20:00 03/15/25 19:56 Range/Units Sodium Level 140 136-145 mmol/L Potassium Level 3.9 3.5-5.1 mmol/L Chloride Level 107 98-107 mmol/L Carbon Dioxide Level 23 20-31 mmol/L Anion Gap 10 5-15 Blood Urea Nitrogen 11 9-23 mg/dL Creatinine 0.90 0.550-1.02 mg/dL Glomerular Filtration Rate Calc 78 >90 mL/min BUN/Creatinine Ratio 12.2 10.0-20.0 Serum Glucose 100 74-106 mg/dL Calcium Level 9.7 8.7-10.4 mg/dL Triglycerides Level 240 H < 150 mg/dL Cholesterol Level 168 < 200 mg/dL LDL Cholesterol 112 H < 100 mg/dL HDL Cholesterol 29 L 40-59 mg/dL Thyroid Stimulating Hormone (TSH) 6.10 H 0.55-4.78 uIU/mL Troponin I High Sensitivity < 3 L </=34 ng/L Urine Color Light-yellow Yellow Urine Clarity Turbid H Clear Urine pH 6.0 5.0-9.0 Urine Specific [place] 1.015 1.001-1.035 Urine Protein Negative Negative Urine Ketones Trace Negative Urine Blood 3+ H Negative /uL Urine Nitrite Negative Negative Urine Bilirubin Negative Negative Urine Urobilinogen Normal Negative mg/dL Urine Leukocyte Esterase 3+ Negative /uL Urine RBC 5 0 - 4 /hpf Urine Microscopic WBC 136 H 0-5 /HPF Urine Squamous Epithelial Cells Few <5 /hpf Urine Bacteria Few H None Seen /hpf Urine Mucus Few None Seen Urine Glucose Normal Normal mg/dL White Blood Count 8.9 4.4-10.8 10^3/uL Red Blood Count 4.67 4.0-5.20 10^6/uL Hemoglobin 14.0 12.2-16.2 g/dL Hematocrit 41.1 36.0-46.0 % Mean Corpuscular Volume 87.9 80.0-100.0 fL Mean Corpuscular Hemoglobin 29.9 28.0-32.0 pg Mean Corpuscular Hemoglobin Concent 34.0 32.0-36.0 g/dL Red Cell Distribution Width 14.3 11.8-14.3 % Platelet Count 245 140-450 10^3/uL Mean Platelet Volume 7.2 6.9-10.8 fL Neutrophils (%) (Auto) 50.1 37.0-80.0 % Lymphocytes (%) (Auto) 38.8 10.0-50.0 % Monocytes (%) (Auto) 7.4 0.0-12.0 % Eosinophils (%) (Auto) 2.7 0.0-7.0 % Basophils (%) (Auto) 1.0 0.0-2.0 % Neutrophils # (Auto) 4.5 1.6-8.6 10 ^3/uL Lymphocytes # (Auto) 3.4 0.4-5.4 10 ^3/uL Monocytes # (Auto) 0.7 0-1.3 10 ^3/uL Eosinophils # (Auto) 0.2 0-0.8 10 ^3/uL Basophils # (Auto) 0.1 0-0.2 10 ^3/uL Nucleated Red Blood Cells 0.2 % Assessment Sinus bradycardia likely secondary to severe hypothyroidism Generalized weakness Acute complicated UTI Presyncope Dyslipidemia Plan: Continue levothyroxine Continue antibiotics Monitor blood pressure IV hydration Rest of the plan as per course of hospitalization Thank you so much for the opportunity to consult on your patient. Cardiology team will follow the patient. In case of any questions or concerns please feel free to reach out. Plan discussed with Dr. Fletcher Plan discussed with: Patient, Other (RN) Visit Coding Cardiology RES Date of Service: Mar 16, 2025 Billing Provider: VANE FLETCHER Sr., MD Cardiology Common Codes: [id number] INP/OBS CARE (High) JOSE FRANCISCO COKER RESIDENT Mar 16, 2025 09:27
--- NOTE | 2025-03-16 10:35 | DVHPNRES ---
Progress Note Date Seen: Mar 16, 2025 Resident Creating Document: JOSE GUIDRY RESIDENT Medical Necessity Reason Pt with a Central, PICC or Fol: No Subjective Review of Systems 49 YO F with recently diagnosed uterine cancer, presents with a sudden onset of faintness, dizziness, and severe fatigue that began yesterday after work. This is the first occurrence of these symptoms. The patient reports feeling fine initially, then experiencing a sudden onset of symptoms including Near syncope, dizziness, and extreme tiredness. Additionally, she felt chest tightness and difficulty breathing. The episode began yesterday after work, and the patient Called ambulance due to shaking and feeling unwell. She distinguishes this experience from her usual anxiety attacks, which occur during times of stress, stating that "this was different." The patient describes feeling chest pressure yesterday, though she currently denies chest pain. Regarding her medical history, the patient was diagnosed with uterine cancer a month ago and is following up in [place] for surgical management. Past Medical History - Uterine cancer diagnosed one month ago - History of anxiety attacks associated with stress - Hypercholesterolemia - Hypertension General: Positive for fatigue. Cardiovascular: Positive for chest tightness, negative for current chest pain. Respiratory: Positive for difficulty breathing. Neurological: Positive for dizziness. Psychiatric: Positive for anxiety. Objective vital signs Vital Sign Date Time Temp Pulse Resp B/P (MAP) Pulse Ox O2 Delivery O2 Flow Rate FiO2 03/16/25 08:50 119/59 03/16/25 07:57 98.2 55 18 98 98.2 03/16/25 04:19 Room Air* 0 21 Total Intake and Output 03/15/25 03/15/25 03/16/25 15:00 23:00 07:00 Intake Total 100 ml Balance 100 ml medications Current Medications Medications Dose Ordered Sig/Malik Route Start Time Stop Time Status Last Admin Dose Admin Lisinopril 10 mg DAILY PO 03/16/25 10:00 03/16/25 08:50 10 MG Levothyroxine Sodium 25 mcg QAM@0600 PO 03/16/25 06:00 03/16/25 04:58 25 MCG Atorvastatin Calcium 20 mg HS PO 03/16/25 22:00 Acetaminophen/ Hydrocodone Bitart 1 tab Q4HP PRN PO 03/16/25 01:15 Ondansetron HCl 4 mg Q4HP PRN IV 03/16/25 01:15 Acetaminophen 650 mg Q6HP PRN PO 03/16/25 01:15 Nitroglycerin 0.4 mg Q5MINP PRN SL 03/16/25 01:15 Morphine Sulfate 2 mg Q30M PRN IV 03/16/25 01:15 Ceftriaxone Sodium 50 ml @ 100 mls/hr DAILY@09 IV 03/17/25 09:00 Examination GENERAL: Not in acute distress. HEENT: EOMI, Moist mucous membranes. No scleral icterus. No cervical lymphadenopathy. LUNGS: Clear to auscultation bilaterally. No accessory muscle use. CARDIOVASCULAR: Regular rate and rhythm. No murmur. No JVD. ABDOMEN: Soft, nontender and nondistended. No palpable masses. EXTREMITIES: No edema. Nontender. SKIN: No rashes or lesions. Warm. NEUROLOGIC: Alert and oriented X4 laboratory and microbiology Laboratory Tests 03/16/25 07:07 03/15/25 19:56 Test 03/16/25 07:07 Range/Units Serum Glucose 100 74-106 mg/dL Problem List/Assessment/Plan Problem List/Assessment/Plan # Acute cardiopulmonary event due to Symptomatic bradycardia # near-syncope, dizziness, due to bradycardia # Generalized weakness - EKG shows: Sinus rhythm, Sinus bradycardia, Incomplete RBBB and LAFB Left anterior fascicular block - echocardiogram - cardiology consult - Continue cardiac monitoring # Urinary tract infection - UA shows: Leukocyte esterase: 3+, urine WBC: 136, urine bacteria few - urine culture - patient is complaining of lower abdominal pain with increased frequency of urination - continue IV Rocephin 1 g daily # Uterine cancer - Patient was diagnosed with uterine cancer one month ago - scheduled to [place] for surgical management # Hypothyroidism - TSH is 6.10 -ordered free T4-T3 - continue levothyroxine 25 mcg # Hypertension - Continue lisinopril - Monitor blood pressure # Hyperlipidemia - atorvastatin 20 mg daily - low carb low-fat diet Follow up care discussed with patient for 27 minutes: Full code Case discussed with Dr. Murdock Plan discussed with: Patient Date of Service: Mar 16, 2025 Billing Provider: AIXA GRADY MD Common Visit Codes: [id number] INP/OBS CARE(HIGH) JOSE GUIDRY RESIDENT Mar 16, 2025 10:35 AIXA GRADY MD Mar 21, 2025 21:59
[2025-03-16] MEDS: ACETAMINOPHEN 325 MG TAB PO ONE (12:31)
[2025-03-16] MEDS: ATORVASTATIN 20 MG TAB PO SCH (21:17)
[2025-03-17] VITALS (8 sets, daily range): BP systolic 102–159; BP diastolic 50–90; PULSE 49–76; RESP 18–22; TEMP 96.4–98.1; O2SAT 94–99
[2025-03-17] MEDS: LEVOTHYROXINE SODIUM 50 MCG TAB PO SCH (06:23)
[2025-03-17] MEDS: cefTRIAXone 1GM/50ML D5W 50 ML IV SCH (10:05)
[2025-03-17] MEDS ORDERED: MECL-90 PO (11:22)
[2025-03-17] MEDS ORDERED: LEVO50TA7 PO (11:24)
[2025-03-17] MEDS ORDERED: CIPR-173 PO (11:26)
--- NOTE | 2025-03-17 11:31 | DVHPNRES ---
Progress Note Date Seen: Mar 17, 2025 Resident Creating Document: JOSE FRANCISCO COKER RESIDENT Medical Necessity Reason Pt with a Central, PICC or Fol: No Subjective Review of Systems Patient seen and examined at bedside. Reports significant improvement in her symptoms compared to yesterday. Still notes some dizziness. Objective vital signs Vital Sign Date Time Temp Pulse Resp B/P (MAP) Pulse Ox O2 Delivery O2 Flow Rate FiO2 03/17/25 10:05 131/70 03/17/25 09:13 96.4 49 20 99 96.4 03/17/25 08:00 Room Air* 0 21 Total Intake and Output 03/16/25 03/16/25 03/17/25 15:00 23:00 07:00 Intake Total 675 ml Balance 675 ml medications Current Medications Medications Dose Ordered Sig/Malik Route Start Time Stop Time Status Last Admin Dose Admin Lisinopril 10 mg DAILY PO 03/16/25 10:00 03/17/25 10:05 10 MG Atorvastatin Calcium 20 mg HS PO 03/16/25 22:00 03/16/25 21:17 20 MG Acetaminophen/ Hydrocodone Bitart 1 tab Q4HP PRN PO 03/16/25 01:15 Ondansetron HCl 4 mg Q4HP PRN IV 03/16/25 01:15 Acetaminophen 650 mg Q6HP PRN PO 03/16/25 01:15 Nitroglycerin 0.4 mg Q5MINP PRN SL 03/16/25 01:15 Morphine Sulfate 2 mg Q30M PRN IV 03/16/25 01:15 Ceftriaxone Sodium 50 ml @ 100 mls/hr DAILY@09 IV 03/17/25 09:00 03/17/25 10:05 100 MLS/HR Levothyroxine Sodium 50 mcg QAM@0600 PO 03/17/25 06:00 03/17/25 06:23 50 MCG Examination General Appearance: Cooperative. Well developed. Well nourished. NAD, dry mucous membrane Head Exam: Normal inspection Neck Exam: Normal inspection. Non-tender. Normal alignment Pulmonary/Respiratory: Chest non-tender. Clear bilateral breath sounds, no crackles, no wheezing. Cardiovascular/Chest: Manually palpated pulse 58 beats per minute. No murmurs. No JVD. Peripheral Pulses: 2+ Radial (R). 2+ Radial (L). 2+ Pedal (R). 2+ Pedal (L) Abdominal Exam: Normal bowel sounds. Soft. normal abdomen, no visible veins, Nontender. No hepatospenomegaly. No masses Lower extremities: Trace lower extremity edema Neuro/Mental Status: A&O x4. Coherent. Thoughts/Psych: Normal thought pattern. Appropriate mood and affect. Good judgement and insight Skin Exam: Normal inspection. Normal color. Warm. Dry laboratory and microbiology Laboratory Tests 03/16/25 07:07 03/15/25 19:56 Test 03/16/25 07:07 Range/Units Serum Glucose 100 74-106 mg/dL Labs and/or images reviewed: Labs reviewed by me, Image(s) reviewed by me Problem List/Assessment/Plan Problem List/Assessment/Plan Sinus bradycardia likely secondary to severe hypothyroidism Generalized weakness Acute complicated UTI Presyncope Dyslipidemia Plan: Continue levothyroxine Continue antibiotics Monitor blood pressure IV hydration Rest of the plan as per course of hospitalization Thank you so much for the opportunity to consult on your patient. Cardiology team will follow the patient. In case of any questions or concerns please feel free to reach out. Plan discussed with Dr. Fletcher Plan discussed with: Patient, Other (RN) Visit Coding Cardiology RES Date of Service: Mar 17, 2025 Billing Provider: VANE FLETCHER Sr., MD Cardiology Common Codes: [id number] HOSP CARE(High SONGANJOSE FRANCISCO RESIDENT Mar 17, 2025 11:31
--- NOTE | 2025-03-17 11:31 | DVHDSRES ---
Discharge Summary Date of Admission Resident Creating Document: JOSE GUIDRY RESIDENT Mar 16, 2025 at 01:06 Date of Discharge: Mar 17, 2025 Admitting Diagnosis Symptomatic bradycardia Labs/Diagnostic Data: Laboratory Results Test 03/16/25 07:07 03/15/25 20:52 03/15/25 20:00 03/15/25 19:56 Sodium Level 140 mmol/L (136-145) Potassium Level 3.9 mmol/L (3.5-5.1) Chloride Level 107 mmol/L (98-107) Carbon Dioxide Level 23 mmol/L (20-31) Anion Gap 10 (5-15) Blood Urea Nitrogen 11 mg/dL (9-23) Creatinine 0.90 mg/dL (0.550-1.02) Glomerular Filtration Rate Calc 78 mL/min (>90) BUN/Creatinine Ratio 12.2 (10.0-20.0) Serum Glucose 100 mg/dL (74-106) Calcium Level 9.7 mg/dL (8.7-10.4) Triglycerides Level 240 mg/dL (< 150) Cholesterol Level 168 mg/dL (< 200) LDL Cholesterol 112 mg/dL (< 100) HDL Cholesterol 29 mg/dL (40-59) Thyroid Stimulating Hormone (TSH) 6.10 uIU/mL (0.55-4.78) Free Thyroxine (T4) Calculated 1.02 ng/dL (0.89-1.76) Troponin I High Sensitivity < 3 ng/L (</=34) Urine Color Light-yellow (Yellow) Urine Clarity Turbid (Clear) Urine pH 6.0 (5.0-9.0) Urine Specific [place] 1.015 (1.001-1.035) Urine Protein Negative (Negative) Urine Ketones Trace (Negative) Urine Blood 3+ /uL (Negative) Urine Nitrite Negative (Negative) Urine Bilirubin Negative (Negative) Urine Urobilinogen Normal mg/dL (Negative) Urine Leukocyte Esterase 3+ /uL (Negative) Urine RBC 5 /hpf (0 - 4) Urine Microscopic WBC 136 /HPF (0-5) Urine Squamous Epithelial Cells Few /hpf (<5) Urine Bacteria Few /hpf (None Seen) Urine Mucus Few (None Seen) Urine Glucose Normal mg/dL (Normal) White Blood Count 8.9 10^3/uL (4.4-10.8) Red Blood Count 4.67 10^6/uL (4.0-5.20) Hemoglobin 14.0 g/dL (12.2-16.2) Hematocrit 41.1 % (36.0-46.0) Mean Corpuscular Volume 87.9 fL (80.0-100.0) Mean Corpuscular Hemoglobin 29.9 pg (28.0-32.0) Mean Corpuscular Hemoglobin Concent 34.0 g/dL (32.0-36.0) Red Cell Distribution Width 14.3 % (11.8-14.3) Platelet Count 245 10^3/uL (140-450) Mean Platelet Volume 7.2 fL (6.9-10.8) Neutrophils (%) (Auto) 50.1 % (37.0-80.0) Lymphocytes (%) (Auto) 38.8 % (10.0-50.0) Monocytes (%) (Auto) 7.4 % (0.0-12.0) Eosinophils (%) (Auto) 2.7 % (0.0-7.0) Basophils (%) (Auto) 1.0 % (0.0-2.0) Neutrophils # (Auto) 4.5 10 ^3/uL (1.6-8.6) Lymphocytes # (Auto) 3.4 10 ^3/uL (0.4-5.4) Monocytes # (Auto) 0.7 10 ^3/uL (0-1.3) Eosinophils # (Auto) 0.2 10 ^3/uL (0-0.8) Basophils # (Auto) 0.1 10 ^3/uL (0-0.2) Nucleated Red Blood Cells 0.2 % Other Laboratory Tests 03/16/25 07:07 03/15/25 19:56 Brief Hx & Hospital Course: HPI: 49 YO F with recently diagnosed uterine cancer, presents with a sudden onset of faintness, dizziness, and severe fatigue that began yesterday after work. This is the first occurrence of these symptoms. The patient reports feeling fine initially, then experiencing a sudden onset of symptoms including Near syncope, dizziness, and extreme tiredness. Additionally, she felt chest tightness and difficulty breathing. The episode began yesterday after work, and the patient Called ambulance due to shaking and feeling unwell. She distinguishes this experience from her usual anxiety attacks, which occur during times of stress, stating that "this was different." The patient describes feeling chest pressure yesterday, though she currently denies chest pain. Regarding her medical history, the patient was diagnosed with uterine cancer a month ago and is following up in [place] for surgical management. Past Medical History - Uterine cancer diagnosed one month ago - History of anxiety attacks associated with stress - Hypercholesterolemia - Hypertension. Summary: Patient has diagnosis symptomatic bradycardia, EKG shows: Sinus rhythm, Sinus bradycardia, Incomplete RBBB and LAFB, patient has history of hypothyroidism on levothyroxine 25 mcg daily, TSH was elevated it was 6.14. Increased levothyroxine to 50 mcg daily. Today patient is stable and going to be discharged home, advised patient to follow up with her float nurse for event monitoring. Follow up with PCP in 1-2 weeks. Condition at Discharge: Stable Final Diagnosis/Problems List # Acute cardiopulmonary event due to Symptomatic bradycardia # Sinus bradycardia likely secondary to severe hypothyroidism # near-syncope, dizziness, due to bradycardia # Possible peripheral vertigo # Generalized weakness # Urinary tract infection # Uterine cancer # Hypothyroidism # Hypertension # Hyperlipidemia Discharge Disposition: Home SNF Discharge Will this Physician continue t: No Discharge Instruct/Medications Diet: Cardiac 2g Na,low cholest Activity: No Restrictions, As Tolerated Follow Up/Referral: See below Medications: See below Care Plan: - ciprofloxacin 500 mg b.i.d. x5 days for UTI - increase levothyroxine to 50 mcg - meclizine 25 mg p.r.n.X 10 days - follow up outpatient Cardiology if needed - follow up in [place] for uterine cancer - follow up with PCP in 1-2 weeks Discharge Statement: "Patient was advised to return to the ER or call 911 if any headaches, dizziness, shortness of breath, chest pain, abdominal pain, bleeding, fevers, or worsening of medical condition. Patient was counseled about treatment plan, medications, possible side effects, patientverbalized understanding. All questions were answered to the best of my ability. This discharge took greater then 30 minutes in planning, reviewing documentation, counseling the patient, and discussing with other team members." ASSESSMENT ASSESSMENT Assessment # Acute cardiopulmonary event due to Symptomatic bradycardia # near-syncope, dizziness, due to bradycardia # Possible peripheral vertigo # Generalized weakness # Urinary tract infection # Uterine cancer # Hypothyroidism # Hypertension # Hyperlipidemia Date of Service: Mar 17, 2025 Billing Provider: AIXA GRADY MD Common Visit Codes: 02590-INN/OBS DISCH DAY >30min JOSE GUIDRY RESIDENT Mar 17, 2025 11:31 AIXA GRADY MD Mar 21, 2025 22:36
[2025-03-17 11:48] LABS: Basophils # (auto) 0 10 ^3/uL (0-0.2); Basophils % (auto) 0.5 % (0.0-2.0); Eosinophils # (auto) 0.2 10 ^3/uL (0-0.8); Eosinophils % (auto) 2.3 % (0.0-7.0); Hematocrit 40.5 % (36.0-46.0); Hemoglobin 13.6 g/dL (12.2-16.2); Lymphocytes # (auto) 2.4 10 ^3/uL (0.4-5.4); Lymphocytes % (auto) 34.2 % (10.0-50.0); Mean Corpuscular Hemoglobin 29.4 pg (28.0-32.0); Mean Corpuscular Hgb Conc. 33.6 g/dL (32.0-36.0); Mean Corpuscular Volume 87.7 fL (80.0-100.0); Monocytes # (auto) 0.5 10 ^3/uL (0-1.3); Monocytes % (auto) 6.8 % (0.0-12.0); Neutrophils # (auto) 3.9 10 ^3/uL (1.6-8.6); Neutrophils % (auto) 56.2 % (37.0-80.0); Platelet Count (auto) 226 10^3/uL (140-450); Red Blood Cells 4.62 10^6/uL (4.0-5.20); Red Cell Distribution Width 13.9 % (11.8-14.3)
[2025-03-17 12:03] LABS: Chloride 107 mmol/L (98-107); Potassium 3.8 mmol/L (3.5-5.1); Sodium 142 mmol/L (136-145)
[2025-03-17 12:04] LABS: Anion Gap 7 (5-15); Calcium 9.8 mg/dL (8.7-10.4); Carbon Dioxide 28 mmol/L (20-31)
[2025-03-17 12:09] LABS: BUN/Creatinine Ratio 13.6 (10.0-20.0); Blood Urea Nitrogen 11 mg/dL (9-23); Glucose 95 mg/dL (74-106)
[2025-03-17] MEDS: ACETAMINOPHEN 325 MG TAB PO PRN (13:32)
[2025-03-17] MEDS: MECLIZINE HCL 25 MG TAB PO PRN (13:32)
--- NOTE | 2025-03-19 23:41 | DVHSR ---
APPROVED REPORT EXAM: LIMITED Two-dimensional and M-mode echocardiogram with Doppler and color Doppler. Blood Pressure: 113/61 mmHg INDICATION Bradycardia RISK FACTORS Obesity: Height: 5' 9", Weight: 330 DIMENSIONS LVDd5.4 (3.8-5.7cm)LA (2D)4.0 (1.9-4.0cm)Aortic Root3.3 (2.0-3.7cm) LVDs3.3 (2.5-4.0cm)LA (MM) (1.9-4.0cm)Aortic Cusp Exc2.0 (1.5-2.0cm) EF (%) 65.0 (55-70%)Rt. Atrium4.4 (1.9-4.0cm)Asc. Aorta cm IVSd0.9 (0.7-1.1cm)RV (D) (1.8-2.4cm) PWd1.0 (0.7-1.1cm) Mitral Valve MitralMitral Stenosis E wave1.10m/sMV Mean GR.mmHg A wave0.90m/sMV Peak GR.mmHg E/A ratio1.22D MVAcm2 Aortic Valve Aortic ValveAortic Stenosis V10.90m/Ilia Mean GR.5mmHg V21.50m/Ilia Peak GR.9mmHg LVOT Diameter2.4 (1.8-2.4cm)Doppler AVA2.71cm2 Pulmonic Valve V20.70m/s Tricuspid Valve TR Velocity2.20m/s [id number] Other Information Quality : Technically LimitedRhythm : Bradycardia Technically limited study due to body habitus. Conclusion LV EF IS NORMAL AND IS 65% NORMAL VALVES SLIGHTLY DILATED LA AND RA NO EFFUSION NORMAL RV FUNCTION AND PRESSURE
== END 2025-03-17 17:34 | disposition home or self-care (01) | DRG 74 ==
LOC: EDBD 19:39 → ER 19:39 → OVERFLOW 03-16 01:06 → TELE-WESTW 03-16 18:13
PROVIDERS: ADMIT Student in an Organized Health Care Education/Training Program; ATTEND Student in an Organized Health Care Education/Training Program
DX: G90.89 Other disorders of autonomic nervous system (principal); Z68.42 Body mass index [BMI] 45.0-49.9, adult; N30.01 Acute cystitis with hematuria; R00.1 Bradycardia, unspecified; I10 Essential (primary) hypertension; I44.4 Left anterior fascicular block; F41.9 Anxiety disorder, unspecified; E66.01 Morbid (severe) obesity due to excess calories; E78.5 Hyperlipidemia, unspecified; H81.393 Other peripheral vertigo, bilateral; E03.9 Hypothyroidism, unspecified; Z90.49 Acquired absence of other specified parts of digestive tract; Z88.5 Allergy status to narcotic agent; Z88.6 Allergy status to analgesic agent; Z83.3 Family history of diabetes mellitus; Z91.011 Allergy to milk products; Z79.2 Long term (current) use of antibiotics; Z85.42 Personal history of malignant neoplasm of other parts of uterus
CPT/HCPCS: 36415; 71045; 80048; 80061; 81001; 82962; 84439; 84443; 84484; 85025; 93005; 93306; 99291; G0378; J2405; J2470